=== PATIENT | female | born 1950 | race Caucasian/White ===

== ENCOUNTER 2016-06-07 11:15 | Outpatient (RCR) | payer BC, MEDICARE, MEDICAID ==
[~2016-06-07 11:15] MED LIST: ADVAIR 250/28 DISKU1 IH; ADVAIR 500/28 DISKUS IH; AUGMENTIN 875 M1 TAB PO; BLOOD PRESSURE MED; BREO IH; CELEBREX 200MG200 MG PO; CELEXA 20MG20 MG/TAB PO; CLINDAMYCIN HC150 MG PO; COMPAZINE 110 MG/TAB PO; CYMBALTA 30MG30 MG PO; DITROPAN 5MG TAB5 MG PO; DULERA1 ARO IH; EFFEXOR XR75 MG/CAP PO; FERRO-TIME325 MG PO; FOLIC ACID0.4 MG PO; FOSAMAX 70MG TA70 MG PO; INDOCIN 25MG CA25 MG PO; IRON90 MG PO; ISOMETH/DICHLOR1 CAP PO; ISOPTIN SR120 MG PO; KETOROLAC TROME10 MG PO; LAMICTAL XR200 MG PO; MAG-OX 400400 MG/TAB PO; MAGIC MOUTH PO; MULTIPLE VITAMI1 CAP PO; NEXIUM40 MG PO; NORCO 325 MG-51 TAB PO; NUCYNTA50 MG PO; OMEPRAZOLE20 MG PO; PERCOCET 325 MG1 TA2 PO; PERI-COLACE 501 TAB PO; PREDNISONE10 MG PO; PRILOSEC 20MG20 MG PO; PRO-AIR IH; PROAIR HFA0.09 MG/AC IH; PROTONIX 40MG T40 MG PO; REQUIP0.25 MG PO; RT ALBUTER2.5 MG/0.5 IH; SINGULAIR10 MG PO; SPIRIVA RE2.5 MCG/Ac; SPIRIVA18 MCG IH; THEO-DUR 3300 MG/TAB PO; THEODUR 300MG PO; THEOPHYLLINE E100 M1 PO; THEOPHYLLINE300 MG PO; TOPAMAX 100MG100 M1 PO; TRIAMTERENE/HCT1 TAB PO; TYLENOL 325MG325 MG PO; VERAPAMIL120 MG/TA1 PO; VICODIN PO; ZOFRAN 4MG T4 MG/TAB PO; [UNRECOGNIZED DRUG - REMARK]
== END 2016-06-11 | disposition home or self-care (01) ==
LOC: MKS.ESL.PT
DX: S72.044D Nondisplaced fracture of base of neck of right femur, subsequent encounter for closed fracture with routine healing (principal); X58.XXXD Exposure to other specified factors, subsequent encounter
CPT/HCPCS: G8978-GP; G8979-GP

== ENCOUNTER → 2016-06-11 | Outpatient (REF) | LOC: ZLAB.WCH 10:25 | DX: Z01.89 Encounter for other specified special examinations (principal) ==

== ENCOUNTER → 2016-06-20 | Outpatient (REF) ==
[2016-06-20 14:12] LABS: THYROID STIMULATING HORMONE 0.913 uIU/mL (0.465-4.680)
== END ==
LOC: ZLAB.WCH 10:23
PROVIDERS: Medical Genetics Clinical Genetics (M.D.)
DX: Z01.89 Encounter for other specified special examinations (principal)

== ENCOUNTER 2016-06-28 11:15 | Outpatient (RCR) | payer BC, MEDICARE, MEDICAID | END 2016-06-29 08:23 | disposition home or self-care (01) | LOC: MKS.ESL.PT 11:15 | DX: S00-T88 Injury, poisoning and certain other consequences of external causes (principal); X58.XXXD Exposure to other specified factors, subsequent encounter | CPT/HCPCS: G8979-GP; G8980-GP ==

== ENCOUNTER → 2016-07-12 | Outpatient (REF) ==
[2016-07-16 09:20] LABS: C-REACTIVE PROTEIN 4.3 mg/dL (0.0-0.9)
== END ==
LOC: ZLAB.WCH 10:53
PROVIDERS: Medical Genetics Clinical Genetics (M.D.)
DX: Z01.89 Encounter for other specified special examinations (principal)

== ENCOUNTER → 2017-01-25 | Outpatient (REF) ==
[~2017-01-25] MED LIST changes: +FLEXERIL 1010 MG/TAB PO
[2017-01-25 18:53] LABS: THYROID STIMULATING HORMONE 0.724 uIU/mL (0.465-4.680)
== END ==
LOC: ZLAB.WCH 18:03
PROVIDERS: Family Medicine
DX: Z01.89 Encounter for other specified special examinations (principal)

== ENCOUNTER 2017-01-26 14:40 | Emergency (ER) | payer BC, MEDICARE, MEDICAID ==
[~2017-01-26] VITALS: Ht 157.5 cm; Wt 62.3 kg
[~2017-01-26 14:40] MED LIST changes: -FLEXERIL 1010 MG/TAB PO
[2017-01-26 14:45] VITALS: BP 135/62; PULSE 65; TEMP 98.5
[2017-01-26] MEDS ORDERED: PERCOCET 325 MG1 TA2 PO (17:22)
[2017-01-26] MEDS ORDERED: FLEXERIL 1010 MG/TAB PO (17:22)
== END 2017-01-26 17:51 | disposition home or self-care (01) ==
LOC: COL.ER 14:40
DX: M54.5 Low back pain (principal); N39.3 Stress incontinence (female) (male); J45.909 Unspecified asthma, uncomplicated; K21.9 Gastro-esophageal reflux disease without esophagitis; G43.909 Migraine, unspecified, not intractable, without status migrainosus; D50.9 Iron deficiency anemia, unspecified
CPT/HCPCS: J1885; J2360

== ENCOUNTER 2018-03-24 13:25 | Emergency (ER) | payer BC, MEDICARE ==
[~2018-03-24] VITALS: Ht 160 cm; Wt 65.9 kg
[~2018-03-24 13:25] MED LIST changes: +FLEXERIL 1010 MG/TAB PO
[2018-03-24 13:29] VITALS: TEMP 99.3
[2018-03-24] MEDS ORDERED: VENTOLIN0.09 MG IH (14:38)
[2018-03-24] MEDS ORDERED: ACIDOPHILIS (14:39)
[2018-03-24] MEDS ORDERED: TOVIAZ4 MG PO (14:39)
[2018-03-24] MEDS ORDERED: CELEXA 20MG20 MG/TAB PO (14:39)
[2018-03-24] MEDS ORDERED: PERCOCET 325 MG1 TA2 PO (15:11)
[2018-03-24] MEDS ORDERED: WALKER MC (15:15)
[2018-03-24 16:05] VITALS: BP 136/66; PULSE 80
== END 2018-03-24 16:08 | disposition home or self-care (01) ==
LOC: COL.ER 13:25
DX: S32.501A Unspecified fracture of right pubis, initial encounter for closed fracture (principal); J44.9 Chronic obstructive pulmonary disease, unspecified; Z87.891 Personal history of nicotine dependence; Z98.890 Other specified postprocedural states; W10.8XXA Fall (on) (from) other stairs and steps, initial encounter

== ENCOUNTER 2018-04-03 12:45 | Outpatient (RCR) | payer BC, MEDICARE ==
[~2018-04-03 12:45] MED LIST changes: +ACIDOPHILIS; +TOVIAZ4 MG PO; +VENTOLIN0.09 MG IH; +WALKER MC
== END 2018-04-11 09:03 | disposition home or self-care (01) ==
LOC: WSPT 12:45
DX: M47.26 Other spondylosis with radiculopathy, lumbar region (principal); M47.818 Spondylosis without myelopathy or radiculopathy, sacral and sacrococcygeal region; M53.3 Sacrococcygeal disorders, not elsewhere classified; G57.00 Lesion of sciatic nerve, unspecified lower limb; G89.29 Other chronic pain

== ENCOUNTER 2018-05-12 12:33 | Emergency (ER) | payer BC, MEDICARE ==
[~2018-05-12] VITALS: Ht 160 cm; Wt 65.9 kg
[2018-05-12 12:38] VITALS: TEMP 97.5
[2018-05-12 13:51] LABS: BASO % 0.4 % (0.0-2.0); EOS # 0.1 (0.0-0.7); EOS % 1.6 % (0-4.0); GRAN # 2.8 (1.4-6.5); GRAN % 53.6 % (42.2-75.2); HEMATOCRIT 39.1 % (37.0-47.0); HEMOGLOBIN 12.7 g/dl (12.5-16.0); LYMPH # 1.8 (1.2-3.4); LYMPH % 35.3 % (20.0-51.0); MEAN CELL VOLUME 89 fl (80.0-100.0); MEAN CORPUSCULAR HEMOGLOBIN 29 pg (27.0-31.0); MEAN CORPUSCULAR HGB CONC 33 g/dl (33.0-37.0); MEAN PLATELET VOLUME 9.8 fl (7.4-10.4); MONO # 0.5 (0.1-0.6); MONO % 8.9 % (1.7-9.3); PLATELET COUNT 272 K/mm3 (130-400); RED BLOOD COUNT 4.39 M/mm3 (4.10-5.30)
[2018-05-12 14:05] LABS: ALANINE AMINOTRANSFERASE 17 U/L (9-52); ALBUMIN 3.7 gm/dL (3.5-5.0); ALKALINE PHOSPHATASE 98 U/L (50-136); ANION GAP 6 mmol/L (7-16); AST,SGOT 25 U/L (15-37); BILIRUBIN,TOTAL 0.2 mg/dL (0.0-1.0); BLOOD UREA NITROGEN 12 mg/dL (7-17); CALCIUM 8.7 mg/dL (8.4-10.2); CARBON DIOXIDE 29 mmol/L (22-30); CHLORIDE 106 mmol/L (98-107); CREATININE, serum 0.75 mg/dL (0.52-1.25); GLUCOSE 100 mg/dL (74-106); POTASSIUM 3.9 mmol/L (3.4-5.0); SODIUM 140 mmol/L (137-145); TOTAL PROTEIN 6.7 gm/dL (6.4-8.2)
[2018-05-12 14:17] LABS: TROPONIN-I < 0.012 ng/mL (0.000-0.034)
[2018-05-12 14:43] VITALS: BP 169/82; PULSE 72
== END 2018-05-12 15:27 | disposition home or self-care (01) ==
LOC: COL.ER 12:33
PROVIDERS: Nurse Practitioner
DX: J45.901 Unspecified asthma with (acute) exacerbation (principal); I10 Essential (primary) hypertension; Z87.891 Personal history of nicotine dependence
CPT/HCPCS: J8540

== ENCOUNTER → 2018-06-03 | Outpatient (CLI) | payer BC, MEDICARE | LOC: MC.RAD 10:38 | DX: Z12.31 Encounter for screening mammogram for malignant neoplasm of breast (principal) ==

== ENCOUNTER 2018-07-09 01:51 | Inpatient (IN) | payer BC, MEDICARE ==
[~2018-07-09] VITALS: Ht 160 cm; Wt 70.4 kg
[2018-07-09] VITALS (440 sets, daily range): BP systolic 130–172; BP diastolic 40–88; PULSE 70–81; TEMP 97.9–98.7; O2SAT 85–100
--- NOTE | 2018-07-09 03:00 | NUR ---
Pt admitted to ICU bed 5 from ED. Pt arrived via strectcher with EMS. Vitals stable upon arrival. Denies pain or any other discomfort. Will continue to monitor. Pt very tearful with labile mood.
--- NOTE | 2018-07-09 03:21 | NUR ---
Pt belonging placed in locked cabinet.
[2018-07-09] MEDS ORDERED: EFFEXOR 3737.5 MG/TA PO (04:35)
[2018-07-09] MEDS ORDERED: FLEXERIL 1010 MG/TAB PO (04:36)
[2018-07-09] MEDS ORDERED: ANTI-DIARRHEAL2 MG (04:37)
[2018-07-09] MEDS ORDERED: ZOFRAN 4MG T4 MG/TAB (04:37)
[2018-07-09] MEDS ORDERED: 00186-0370-20 IH (04:39)
--- NOTE | 2018-07-09 04:53 | NUR ---
Admission assessment complete at this time. Plan of care reviewed at bedside with patient at bedside. Additional time taken to address any other needs or concerns. Vitals stable. Denies pain. Will continue to monitor.
[2018-07-09 06:28] LABS: BASO # 0.1 (0.0-0.2); BASO % 0.7 % (0.0-2.0); EOS % 0.3 % (0-4.0); GRAN # 4.1 (1.4-6.5); GRAN % 59.8 % (42.2-75.2); HEMOGLOBIN 10.3 g/dl (12.5-16.0); LYMPH % 28.2 % (20.0-51.0); MEAN CELL VOLUME 86 fl (80.0-100.0); MEAN CORPUSCULAR HEMOGLOBIN 28 pg (27.0-31.0); MEAN CORPUSCULAR HGB CONC 32 g/dl (33.0-37.0); MEAN PLATELET VOLUME 10.6 fl (7.4-10.4); MONO # 0.7 (0.1-0.6); MONO % 10.7 % (1.7-9.3); PLATELET COUNT 249 K/mm3 (130-400); RED BLOOD COUNT 3.72 M/mm3 (4.10-5.30); REDCELL DISTRIBUTION WIDTH-CV 13.6 % (11.5-14.5)
[2018-07-09 06:36] LABS: ALBUMIN 3.1 gm/dL (3.5-5.0); BILIRUBIN,TOTAL 0.6 mg/dL (0.0-1.0); CALCIUM 8.3 mg/dL (8.4-10.2); CREATININE, serum 0.59 mg/dL (0.52-1.25); POTASSIUM 3.9 mmol/L (3.4-5.0); TOTAL PROTEIN 5.7 gm/dL (6.4-8.2)
--- NOTE | 2018-07-09 07:30 | NUR ---
Report received from Allen RN and care resumed. Pt resting quietly at this time. Does respond when asked questions but is curled up under blankets at this time and gives short one or two word responses. Will continue to follow.
--- NOTE | 2018-07-09 07:32 | NUR ---
Bedside report given to Evelia Rivera.
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
--- NOTE | 2018-07-09 09:15 | NUR ---
CEE Jean from OB here at this time for 1:1 observation. Will continue to follow.
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
--- NOTE | 2018-07-09 10:36 | NUR ---
Dr Pyle in to see pt at this time. Asked for DVT clarification due to pt not able to wear scd's per psych policy. He stated pt is not a blood thinner candidate due to large hematoma and will update the progress noted accordingly.
--- NOTE | 2018-07-09 11:24 | NUR ---
Pt resting at this time. Does continue to ask if she can talk to her and gets teary eyed with response of not at this time. Waiting on neuro, psych, and surgical consults at this time for updated plan of care. Will continue to update pt as able.
--- NOTE | 2018-07-09 12:18 | NUR ---
Dr Oliver in to see pt at this time. Pt currently getting echo.
--- NOTE | 2018-07-09 12:25 | NUR ---
Pt to MRI at this time.
--- NOTE | 2018-07-09 12:55 | NUR ---
Pt returned from MRI and placed back on monitors. Miranda remains at beside as sitter. Will continue to follow.
--- NOTE | 2018-07-09 16:57 | NUR ---
Dr Chavira in to see pt and had cleared pt of suicide watch at this time.
--- NOTE | 2018-07-09 17:13 | NUR ---
Called Dr Pyle to update him on plan of care per psych. He stated he will transfer pt to floor.
--- NOTE | 2018-07-09 18:28 | NUR ---
Report called to Yuly MIKE. Pt to transfer to medical floor room 355.
--- NOTE | 2018-07-09 18:45 | NUR ---
Pt taken by wheelchair with chart and belongings to room 355. Update given to Yuly MIKE. Pt complaining of pain after moving. No medications ordered. LABORATORY EQUIPMENT INSTALLER called and stated will address pain meds.
--- NOTE | 2018-07-09 19:43 | NUR ---
Resting in bed. Rating pain in right hip 10/10 sharp stabbing. Provided PRN percocet 1 tablet. Assessment complete. Lungs clear. Bowels active x4. Heart sounds normal. No edema noted. Large hematoma to right hip present. INT in left hand bleeding and unable to flush without increased pain to patient. Removed from left hand. Started INT to right forearm. Denies any other needs at this time. Call light in reach. Will monitor.
[2018-07-10] VITALS: BP 138/48; PULSE 67; TEMP 98
--- NOTE | 2018-07-10 00:08 | NUR ---
Resting in bed. Reporting pain 6/10 in right hip. Percocet not due. Provided pillows for comfort. Denies needs at this time.
--- NOTE | 2018-07-10 04:40 | NUR ---
Up to restroom and returned to bed. Denies needs at this time. Call light in reach.
[2018-07-10 05:17] VITALS: BP 137/42; PULSE 62; TEMP 98
--- NOTE | 2018-07-10 06:24 | NUR ---
Unevenful night. Required pain control for right hip/flank pain. Asleep this AM. Call light in reach.
[2018-07-10 06:26] LABS: BASO % 0.7 % (0.0-2.0); EOS # 0.1 (0.0-0.7); EOS % 0.8 % (0-4.0); GRAN # 3.1 (1.4-6.5); GRAN % 51.6 % (42.2-75.2); LYMPH # 2.2 (1.2-3.4); LYMPH % 36.3 % (20.0-51.0); MEAN CELL VOLUME 88 fl (80.0-100.0); MEAN CORPUSCULAR HGB CONC 32 g/dl (33.0-37.0); MEAN PLATELET VOLUME 10.5 fl (7.4-10.4); MONO # 0.6 (0.1-0.6); MONO % 10.3 % (1.7-9.3); PLATELET COUNT 223 K/mm3 (130-400); RED BLOOD COUNT 3.36 M/mm3 (4.10-5.30); REDCELL DISTRIBUTION WIDTH-CV 13.9 % (11.5-14.5)
[2018-07-10 06:31] LABS: HEMATOCRIT 29.6 % (37.0-47.0); HEMOGLOBIN 9.5 g/dl (12.5-16.0); MEAN CORPUSCULAR HEMOGLOBIN 28 pg (27.0-31.0)
[2018-07-10 06:41] LABS: CALCIUM 8.6 mg/dL (8.4-10.2); CREATININE, serum 0.6 mg/dL (0.52-1.25); MAGNESIUM 2.3 mg/dL (1.6-2.3)
--- NOTE | 2018-07-10 07:19 | NUR ---
Report given to CEE Hurtado.
[2018-07-10 08:07] VITALS: BP 152/62; PULSE 66; TEMP 98.3
--- NOTE | 2018-07-10 10:00 | NUR ---
Assessment completed, alert/oriented, speech clear, steady gait, grounding engineer equal, no neuro deficits noted, she reprots severe pain to right flank/ large hematoma present, Percocet 2 tabs given per her request, following H&H and blood counts are stable , blood pressures are WNL, other Vital signs stable, heart RRR/distal pulses are palpable, lungs CTA/ no resp.difficulty noted, she is up independently in the room, has been by and made recommendations to cut back on her Ambien usage and that if she does well with PT today she could be discahrge from a Neurology standpoint, patient has taken morning meds and dneies other needs at this time, will continue to monitor
[2018-07-10] MEDS ORDERED: EFFEXOR XR75 MG/CAP PO (11:12)
--- NOTE | 2018-07-10 13:34 | NUR ---
discharge orders discussed with patient, instructed to stop taking Ambien and dose adjustment made to her Effexor, instructed to follow up with PCP and have EEG done as we have scheduled for her, instructed to make a follow up with 1 week after her EEG is completed/ Neuro office is closed today and she will need to schedule her own appointment, IV and tele removed, she is leaving with her , FURNACE OPERATOR escorted her out the door
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
== END 2018-07-10 13:36 | disposition home or self-care (01) | DRG 918 ==
LOC: IMCU 01:51 → ICU 02:57 → MEDICAL 02:57
PROVIDERS: Nurse Practitioner; ADMIT Internal Medicine
DX: T42.6X1A Poisoning by other antiepileptic and sedative-hypnotic drugs, accidental (unintentional), initial encounter (principal); G93.40 Encephalopathy, unspecified; D62 Acute posthemorrhagic anemia; T48.1X1A Poisoning by skeletal muscle relaxants [neuromuscular blocking agents], accidental (unintentional), initial encounter; T39.1X1A Poisoning by 4-Aminophenol derivatives, accidental (unintentional), initial encounter; R41.82 Altered mental status, unspecified; F33.41 Major depressive disorder, recurrent, in partial remission; F41.1 Generalized anxiety disorder; S30.1XXA Contusion of abdominal wall, initial encounter; W18.30XA Fall on same level, unspecified, initial encounter; D50.0 Iron deficiency anemia secondary to blood loss (chronic); M79.7 Fibromyalgia; Z87.891 Personal history of nicotine dependence
CPT/HCPCS: 99223-AI; 99239

== ENCOUNTER 2018-11-05 16:58 | Emergency (ER) | payer BC, MEDICARE ==
[~2018-11-05] VITALS: Ht 157.5 cm; Wt 65.9 kg
[~2018-11-05 16:58] MED LIST changes: +00186-0370-20 IH; +ANTI-DIARRHEAL2 MG; +EFFEXOR 3737.5 MG/TA PO; +ZOFRAN 4MG T4 MG/TAB
[2018-11-05 17:11] VITALS: BP 193/88; TEMP 97.5
[2018-11-05 18:17] LABS: BASO % 0.4 % (0.0-2.0); EOS # 0.1 (0.0-0.7); EOS % 1.1 % (0-4.0); GRAN # 6.4 (1.4-6.5); GRAN % 66.4 % (42.2-75.2); HEMATOCRIT 41.4 % (37.0-47.0); HEMOGLOBIN 13.7 g/dl (12.5-16.0); LYMPH # 2.3 (1.2-3.4); LYMPH % 23.7 % (20.0-51.0); MEAN CELL VOLUME 91 fl (80.0-100.0); MEAN CORPUSCULAR HEMOGLOBIN 30 pg (27.0-31.0); MEAN CORPUSCULAR HGB CONC 33 g/dl (33.0-37.0); MEAN PLATELET VOLUME 10.8 fl (7.4-10.4); MONO # 0.8 (0.1-0.6); MONO % 8.2 % (1.7-9.3); PLATELET COUNT 288 K/mm3 (130-400); RED BLOOD COUNT 4.54 M/mm3 (4.10-5.30); REDCELL DISTRIBUTION WIDTH-CV 13.5 % (11.5-14.5)
[2018-11-05 18:25] LABS: ALANINE AMINOTRANSFERASE 12 U/L (9-52); ALBUMIN 3.9 gm/dL (3.5-5.0); ALKALINE PHOSPHATASE 108 U/L (50-136); ANION GAP 7 mmol/L (7-16); AST,SGOT 17 U/L (15-37); BILIRUBIN,TOTAL 0.2 mg/dL (0.0-1.0); BLOOD UREA NITROGEN 12 mg/dL (7-17); CALCIUM 9.1 mg/dL (8.4-10.2); CARBON DIOXIDE 26 mmol/L (22-30); CHLORIDE 106 mmol/L (98-107); CREATININE, serum 0.61 (0.52-1.25); GLUCOSE 110 mg/dL (74-106); LIPASE 43 U/L (23-300); SODIUM 139 mmol/L (137-145)
[2018-11-05 18:27] LABS: C-REACTIVE PROTEIN 0.5 mg/dL (0.0-0.9)
[2018-11-05 18:42] LABS: TROPONIN-I < 0.012 ng/mL (0.000-0.035)
[2018-11-05 18:50] LABS: COLLECTION METHOD CLEAN CATCH
[2018-11-05 19:18] LABS: MUCOUS Present /lpf; PH 5 (5-8); SQUAMOUS EPITHELIAL 0-2 /hpf; URINE APPEARANCE Clear; URINE BACTERIA None Seen /hpf; URINE BILIRUBIN Negative (NEGATIVE); URINE BLOOD Negative (NEGATIVE); URINE COLOR Yellow; URINE GLUCOSE Negative (NEGATIVE); URINE KETONE Negative (NEGATIVE); URINE LEUKOCYTE ESTERASE Negative (NEGATIVE); URINE NITRATE Negative (NEGATIVE); URINE PROTEIN(semi-quant) Negative (NEGATIVE); URINE RBC 0-2 /hpf; URINE UROBILINOGEN Negative (NEGATIVE)
[2018-11-05 20:40] VITALS: PULSE 74
== END 2018-11-05 20:40 | disposition home or self-care (01) ==
LOC: COL.ER 16:58
PROVIDERS: Emergency Medicine
DX: R10.11 Right upper quadrant pain (principal); J44.9 Chronic obstructive pulmonary disease, unspecified
CPT/HCPCS: J1170; J1885; J2405; J7030

== ENCOUNTER 2018-11-19 10:00 | Outpatient (RCR) | payer BC, MEDICARE ==
[2018-11-25] MEDS ORDERED: PHENERGAN 25 TA25 MG PO (19:27)
== END 2019-01-06 | disposition still patient (30) ==
LOC: WSOT
DX: S52.572D Other intraarticular fracture of lower end of left radius, subsequent encounter for closed fracture with routine healing (principal)

== ENCOUNTER → 2018-11-24 | Outpatient (CLI) | payer BC, MEDICARE ==
[~2018-11-24] MED LIST changes: +PHENERGAN 25 TA25 MG PO
== END ==
LOC: COL.RAD 06:46
DX: R10.9 Unspecified abdominal pain (principal)
CPT/HCPCS: A9537

== ENCOUNTER 2018-11-25 16:45 | Emergency (ER) | payer BC, MEDICARE ==
[~2018-11-25] VITALS: Ht 157.5 cm; Wt 63.6 kg
[~2018-11-25 16:45] MED LIST changes: -PHENERGAN 25 TA25 MG PO
[2018-11-25 16:50] VITALS: BP 172/90; TEMP 97.8
[2018-11-25 17:36] LABS: BASO % 0.4 % (0.0-2.0); EOS # 0.1 (0.0-0.7); EOS % 1.3 % (0-4.0); GRAN # 4.4 (1.4-6.5); HEMATOCRIT 42.3 % (37.0-47.0); HEMOGLOBIN 13.7 g/dl (12.5-16.0); LYMPH # 2.7 (1.2-3.4); LYMPH % 34.2 % (20.0-51.0); MEAN CELL VOLUME 93 fl (80.0-100.0); MEAN CORPUSCULAR HEMOGLOBIN 30 pg (27.0-31.0); MEAN CORPUSCULAR HGB CONC 32 g/dl (33.0-37.0); MEAN PLATELET VOLUME 10.5 fl (7.4-10.4); MONO # 0.6 (0.1-0.6); MONO % 7.7 % (1.7-9.3); PLATELET COUNT 310 K/mm3 (130-400); RED BLOOD COUNT 4.56 M/mm3 (4.10-5.30); REDCELL DISTRIBUTION WIDTH-CV 14.2 % (11.5-14.5)
[2018-11-25 17:44] LABS: ALANINE AMINOTRANSFERASE 6 U/L (9-52); ALKALINE PHOSPHATASE 104 U/L (50-136); ANION GAP 8 mmol/L (7-16); AST,SGOT 26 U/L (15-37); BILIRUBIN,TOTAL 0.3 mg/dL (0.0-1.0); BLOOD UREA NITROGEN 9 mg/dL (7-17); CALCIUM 9.3 mg/dL (8.4-10.2); CARBON DIOXIDE 30 mmol/L (22-30); CHLORIDE 103 mmol/L (98-107); CREATININE, serum 0.65 (0.52-1.25); GLUCOSE 128 mg/dL (74-106); LIPASE 34 U/L (23-300); POTASSIUM 3.7 mmol/L (3.4-5.0); SODIUM 141 mmol/L (137-145); TOTAL PROTEIN 7.1 gm/dL (6.4-8.2)
[2018-11-25 17:50] LABS: C-REACTIVE PROTEIN < 0.5 mg/dL (0.0-0.9)
[2018-11-25 18:17] LABS: COLLECTION METHOD CLEAN CATCH
[2018-11-25 18:24] LABS: MUCOUS Present /lpf; PH 7 (5-8); SQUAMOUS EPITHELIAL 0-2 /hpf; URINE APPEARANCE Clear; URINE BACTERIA None Seen /hpf; URINE BILIRUBIN Negative (NEGATIVE); URINE BLOOD Negative (NEGATIVE); URINE COLOR Straw; URINE GLUCOSE Negative (NEGATIVE); URINE KETONE Negative (NEGATIVE); URINE LEUKOCYTE ESTERASE Negative (NEGATIVE); URINE NITRATE Negative (NEGATIVE); URINE PROTEIN(semi-quant) Negative (NEGATIVE); URINE RBC 0-2 /hpf; URINE UROBILINOGEN Negative (NEGATIVE)
[2018-11-25] MEDS ORDERED: PHENERGAN 25 TA25 MG PO (19:27)
[2018-11-25 19:36] VITALS: PULSE 67
== END 2018-11-25 19:39 | disposition home or self-care (01) ==
LOC: COL.ER 16:45
PROVIDERS: Emergency Medicine
DX: R10.13 Epigastric pain (principal); K21.9 Gastro-esophageal reflux disease without esophagitis
CPT/HCPCS: C9113; J0780; J1170; J1200; J2930; J7030; Q9967

== ENCOUNTER 2019-02-15 15:46 | Emergency (ER) | payer BC, MEDICARE ==
[~2019-02-15] VITALS: Ht 157.5 cm; Wt 65.9 kg
[~2019-02-15 15:46] MED LIST changes: +PHENERGAN 25 TA25 MG PO
[2019-02-15 16:23] VITALS: BP 126/82; PULSE 89; TEMP 98
== END 2019-02-15 17:20 | disposition left against medical advice (07) ==
LOC: COL.ER 15:46
DX: S40.212A Abrasion of left shoulder, initial encounter (principal); W22.8XXA Striking against or struck by other objects, initial encounter

== ENCOUNTER 2019-06-01 19:16 | Emergency (ER) | payer BC, MEDICARE ==
[~2019-06-01] VITALS: Ht 157.5 cm; Wt 63.6 kg
[~2019-06-01 19:16] MED LIST changes: +ATIVAN 0.50.5 MG/TAB PO; +EFFEXOR-XR150 MG PO; +NORVASC 5MG5 MG/TAB PO
[2019-06-01 19:37] VITALS: TEMP 97.7
[2019-06-01 21:33] LABS: BASO # 0.1 (0.0-0.2); BASO % 0.3 % (0.0-2.0); EOS # 0.1 (0.0-0.7); EOS % 0.7 % (0-4.0); GRAN # 11.4 (1.4-6.5); GRAN % 79.4 % (42.2-75.2); HEMATOCRIT 41.8 % (37.0-47.0); HEMOGLOBIN 13.6 g/dl (12.5-16.0); LYMPH # 1.7 (1.2-3.4); LYMPH % 11.8 % (20.0-51.0); MEAN CELL VOLUME 90 fl (80.0-100.0); MEAN CORPUSCULAR HEMOGLOBIN 29 pg (27.0-31.0); MEAN CORPUSCULAR HGB CONC 33 g/dl (33.0-37.0); MEAN PLATELET VOLUME 9.9 fl (7.4-10.4); MONO % 7.2 % (1.7-9.3); PLATELET COUNT 390 K/mm3 (130-400); RED BLOOD COUNT 4.64 M/mm3 (4.10-5.30); REDCELL DISTRIBUTION WIDTH-CV 13.4 % (11.5-14.5)
[2019-06-01 21:34] LABS: ALBUMIN 4.3 gm/dL (3.5-5.0); BILIRUBIN,TOTAL 0.5 mg/dL (0.0-1.0); C-REACTIVE PROTEIN 0.9 mg/dL (0.0-0.9); CALCIUM 9.2 mg/dL (8.4-10.2); CREATININE, serum 0.63 (0.52-1.25); POTASSIUM 3.6 mmol/L (3.4-5.0); TOTAL PROTEIN 7.4 gm/dL (6.4-8.2)
[2019-06-01 21:57] LABS: ERYTHROCYTE SEDIMENTATION RATE 13 mm/hr (0-30)
[2019-06-01 22:43] LABS: COLLECTION METHOD CLEAN CATCH
[2019-06-01 23:04] LABS: MUCOUS Present /lpf; PH 7 (5-8); SQUAMOUS EPITHELIAL 0-2 /hpf; URINE APPEARANCE Clear; URINE BACTERIA None Seen /hpf; URINE BILIRUBIN Negative (NEGATIVE); URINE BLOOD 1+ (NEGATIVE); URINE COLOR Yellow; URINE GLUCOSE Negative (NEGATIVE); URINE KETONE 1+ (NEGATIVE); URINE LEUKOCYTE ESTERASE Negative (NEGATIVE); URINE NITRATE Negative (NEGATIVE); URINE PROTEIN(semi-quant) Negative (NEGATIVE); URINE RBC 0-2 /hpf; URINE UROBILINOGEN Negative (NEGATIVE)
[2019-06-01] MEDS ORDERED: FLEXERIL 1010 MG/TAB PO (23:34)
[2019-06-02 01:45] VITALS: BP 140/80; PULSE 81
== END 2019-06-02 01:47 | disposition home or self-care (01) ==
LOC: COL.ER 19:16
PROVIDERS: Emergency Medicine
DX: M54.5 Low back pain (principal); M54.6 Pain in thoracic spine; G89.29 Other chronic pain; J44.9 Chronic obstructive pulmonary disease, unspecified; Z87.891 Personal history of nicotine dependence
CPT/HCPCS: J1200; J1885; J2270; J2920; J7030; Q9967

== ENCOUNTER 2019-06-12 15:19 | Emergency (ER) | payer BC, MEDICARE ==
[~2019-06-12] VITALS: Ht 157.5 cm; Wt 63.6 kg
[2019-06-12 16:10] VITALS: BP 179/100
[2019-06-12 19:30] VITALS: PULSE 88; TEMP 98.2
== END 2019-06-12 19:33 | disposition home or self-care (01) ==
LOC: COL.ER 15:19
DX: S22.050A Wedge compression fracture of T5-T6 vertebra, initial encounter for closed fracture (principal); J44.9 Chronic obstructive pulmonary disease, unspecified; Z87.891 Personal history of nicotine dependence; X58.XXXA Exposure to other specified factors, initial encounter
CPT/HCPCS: J2270

== ENCOUNTER → 2019-12-29 | Outpatient (CLI) | payer BC, MEDICARE | LOC: MC.RAD 09:21 | DX: Z12.31 Encounter for screening mammogram for malignant neoplasm of breast (principal) ==

== ENCOUNTER 2020-10-17 13:48 | Emergency (ER) | payer BC, MEDICARE ==
[~2020-10-17] VITALS: Ht 157.5 cm; Wt 59.5 kg
[2020-10-17 13:56] VITALS: TEMP 98.2
[2020-10-17 14:18] LABS: BASO # 0.1 (0.0-0.2); BASO % 0.8 % (0.0-2.0); EOS # 0.2 (0.0-0.7); EOS % 1.5 % (0-4.0); GRAN # 7.4 (1.4-6.5); GRAN % 70.7 % (42.2-75.2); HEMATOCRIT 38.1 % (37.0-47.0); HEMOGLOBIN 12.6 g/dl (12.5-16.0); LYMPH % 19.1 % (20.0-51.0); MEAN CELL VOLUME 91 fl (80.0-100.0); MEAN CORPUSCULAR HEMOGLOBIN 30 pg (27.0-31.0); MEAN CORPUSCULAR HGB CONC 33 g/dl (33.0-37.0); MEAN PLATELET VOLUME 10.7 fl (7.4-10.4); MONO # 0.8 (0.1-0.6); MONO % 7.6 % (1.7-9.3); PLATELET COUNT 356 K/mm3 (130-400); RED BLOOD COUNT 4.21 M/mm3 (4.10-5.30); REDCELL DISTRIBUTION WIDTH-CV 12.9 % (11.5-14.5)
[2020-10-17 14:26] LABS: PARTIAL THROMBOPLASTIN TIME 31.5 SECONDS (26.0-37.0)
[2020-10-17 14:30] LABS: ALANINE AMINOTRANSFERASE 12 U/L (4-34); ALBUMIN 4.1 gm/dL (3.5-5.0); ALKALINE PHOSPHATASE 88 U/L (50-136); ANION GAP 6 mmol/L (7-16); AST,SGOT 24 U/L (15-37); BILIRUBIN,TOTAL 0.3 mg/dL (0.0-1.0); BLOOD UREA NITROGEN 19 mg/dL (7-17); CALCIUM 9.5 mg/dL (8.4-10.2); CARBON DIOXIDE 27 mmol/L (22-30); CHLORIDE 102 mmol/L (98-107); CREATININE, serum 0.99 (0.52-1.25); GLUCOSE 107 mg/dL (74-106); POTASSIUM 3.3 mmol/L (3.4-5.0); SODIUM 134 mmol/L (137-145); TOTAL PROTEIN 7.2 gm/dL (6.4-8.2)
[2020-10-17 14:43] LABS: TROPONIN-I < 0.012 ng/mL (0.000-0.035)
[2020-10-17 15:46] VITALS: BP 176/77; PULSE 83
== END 2020-10-17 15:44 | disposition home or self-care (01) ==
LOC: COL.ER 13:48
PROVIDERS: Family Medicine
DX: R07.89 Other chest pain (principal); I10 Essential (primary) hypertension; J44.9 Chronic obstructive pulmonary disease, unspecified; Z87.891 Personal history of nicotine dependence; Z79.51 Long term (current) use of inhaled steroids; Z79.899 Other long term (current) drug therapy

== ENCOUNTER 2021-07-12 12:39 | Emergency (ER) | payer BC, MEDICARE ==
[~2021-07-12] VITALS: Ht 157.5 cm; Wt 53.6 kg
[2021-07-12 13:02] VITALS: TEMP 98.7
[2021-07-12] MEDS ORDERED: PERCOCET 325 MG1 TA2 PO (15:15)
[2021-07-12 15:35] VITALS: BP 119/75; PULSE 81
== END 2021-07-12 15:35 | disposition home or self-care (01) ==
LOC: COL.ER 12:39
DX: S22.20XA Unspecified fracture of sternum, initial encounter for closed fracture (principal); Z88.6 Allergy status to analgesic agent; W10.8XXA Fall (on) (from) other stairs and steps, initial encounter
CPT/HCPCS: J2270

== ENCOUNTER 2021-08-02 15:56 | Emergency (ER) | payer BC, MEDICARE ==
[~2021-08-02] VITALS: Ht 157.5 cm; Wt 54.5 kg
[2021-08-02 16:06] VITALS: TEMP 98.1
[2021-08-02 17:12] LABS: BASO # 0.1 K/mm3 (0.0-0.2); BASO % 0.8 % (0.0-2.0); EOS # 0.1 K/mm3 (0.0-0.7); EOS % 0.6 % (0.0-4.0); GRAN # 8.4 K/mm3 (1.4-6.5); GRAN % 74.4 % (42.2-75.2); HEMATOCRIT 41.9 % (37.0-47.0); HEMOGLOBIN 14.1 g/dl (12.5-16.0); LYMPH # 1.8 K/mm3 (1.2-3.4); LYMPH % 15.7 % (20.0-51.0); MEAN CELL VOLUME 87 fl (80.0-100.0); MEAN CORPUSCULAR HEMOGLOBIN 29 pg (27-31); MEAN CORPUSCULAR HGB CONC 34 g/dl (33.0-37.0); MEAN PLATELET VOLUME 10.1 fl (7.4-10.4); MONO # 0.9 K/mm3 (0.1-0.6); PLATELET COUNT 386 K/mm3 (130-400); RED BLOOD COUNT 4.81 M/mm3 (4.10-5.30); REDCELL DISTRIBUTION WIDTH-CV 14.6 % (11.5-14.5)
[2021-08-02 18:21] LABS: TRICYCLIC ANTIDEPRESS URINE NEGATIVE
[2021-08-02] MEDS ORDERED: PERCOCET 325 MG1 TA2 PO (19:27)
[2021-08-02 19:54] VITALS: BP 138/87; PULSE 86
== END 2021-08-02 19:54 | disposition home or self-care (01) ==
LOC: COL.ER 15:56
PROVIDERS: Physician Assistant
DX: S22.080A Wedge compression fracture of T11-T12 vertebra, initial encounter for closed fracture (principal); W18.2XXA Fall in (into) shower or empty bathtub, initial encounter
CPT/HCPCS: J3010

== ENCOUNTER 2022-09-28 13:11 | Day surgery (SDC) | payer OTHER, MEDICARE ==
[~2022-09-28] VITALS: Ht 152.4 cm; Wt 47.8 kg
[2022-09-28] MEDS ORDERED: COZAAR100 MG PO (13:30)
[2022-09-28] MEDS ORDERED: SPIRIVA RE2.5 MCG/Ac IH (13:30)
[2022-09-28] MEDS ORDERED: 00186-0370-20 IH (13:31)
[2022-09-28] MEDS ORDERED: THEO-DUR 3300 MG/TAB PO (13:31)
[2022-09-28] MEDS ORDERED: CARAFATE 1GM1 G PO (13:31)
[2022-09-28] MEDS ORDERED: PROTONIX 40MG T40 MG PO (13:34)
[2022-09-28] MEDS ORDERED: PREDNISONE10 MG PO (13:34)
[2022-09-28 13:47] VITALS: BP 154/82; PULSE 93; TEMP 98.4
[2022-09-28 15:15] VITALS: BP 131/65; PULSE 54; TEMP 98.4
[2022-09-28 15:30] VITALS: BP 127/67; PULSE 50
[2022-09-28 15:45] VITALS: BP 140/76; PULSE 52
--- NOTE | 2022-09-28 16:05 | NUR ---
1515 RETURNS TO ROOM 5 PER CART. AWAKE, ALERT. RESP UNLABORED. AMBULATES TO RECLINER WITH STAND BY ASSIST. DENIES NAUSEA OR DYSPHAGIA. REPORTS SLIGHT ABD GAS PAIN. VITAL SIGNS OBTAINED. CALL LIGHT AT SIDE. FRIEND IN ROOM. 1530 REPORTS COMFORT TOLERATES PO JUICE WITHOUT NAUSEA. SWALLOWS WITHOUT DIFFICULTY. 1545 DISCHARGE INSTRUCTIONS REVIEWED. PATIENT VERBALIZES UNDERSTANDING. COPY PROVIDED IN DISCHARGE FOLDER 1548 DR. LOPEZ HERE TO VISIT WITH PATIENT. 1558 DRESSES SELF
== END 2022-09-28 16:05 | disposition home or self-care (01) ==
LOC: SDCO 13:11
DX: Z12.11 Encounter for screening for malignant neoplasm of colon (principal); K22.2 Esophageal obstruction; K20.90 Esophagitis, unspecified without bleeding; K44.9 Diaphragmatic hernia without obstruction or gangrene; K57.30 Diverticulosis of large intestine without perforation or abscess without bleeding; K92.0 Hematemesis; D50.9 Iron deficiency anemia, unspecified; Z86.010 Personal history of colon polyps; Z87.891 Personal history of nicotine dependence; Z79.899 Other long term (current) drug therapy
CPT/HCPCS: 43239; 43249; G0121; C1726; J2704; J7120

== ENCOUNTER 2022-10-05 16:36 | Emergency (ER) | payer OTHER, MEDICARE ==
[~2022-10-05] VITALS: Ht 152.4 cm; Wt 48.2 kg
[~2022-10-05 16:36] MED LIST changes: +CARAFATE 1GM1 G PO; +COZAAR100 MG PO; +SPIRIVA RE2.5 MCG/Ac IH
[2022-10-05 16:38] VITALS: TEMP 98.7
[2022-10-05 17:24] LABS: BASO # 0.1 K/mm3 (0.0-0.2); BASO % 0.6 % (0.0-2.0); EOS # 0.1 K/mm3 (0.0-0.7); EOS % 1.4 % (0.0-4.0); GRAN # 4.7 K/mm3 (1.4-6.5); GRAN % 58.8 % (42.2-75.2); LYMPH # 2.1 K/mm3 (1.2-3.4); LYMPH % 26.8 % (20.0-51.0); MEAN CELL VOLUME 80 fl (80.0-100.0); MEAN CORPUSCULAR HEMOGLOBIN 25 pg (27-31); MEAN CORPUSCULAR HGB CONC 31 g/dl (33.0-37.0); MEAN PLATELET VOLUME 9.3 fl (7.4-10.4); PLATELET COUNT 564 K/mm3 (130-400); RED BLOOD COUNT 3.63 M/mm3 (4.10-5.30)
[2022-10-05 17:36] LABS: ALBUMIN 3.5 gm/dL (3.4-4.8); BILIRUBIN,TOTAL 0.1 mg/dL (0.2-1.2); CALCIUM 9.4 mg/dL (8.4-10.2); CREATININE, serum 1.71 mg/dL (0.57-1.11); TOTAL PROTEIN 6.2 gm/dL (6.2-8.1)
[2022-10-05 18:07] VITALS: BP 168/81; PULSE 82
== END 2022-10-05 18:10 | disposition home or self-care (01) ==
LOC: COL.ER 16:36
PROVIDERS: Physician Assistant
DX: D64.9 Anemia, unspecified (principal)
CPT/HCPCS: J2405; J7030

== ENCOUNTER 2023-06-25 03:59 | Emergency (ER) | payer OTHER, MEDICARE ==
[~2023-06-25] VITALS: Ht 147.3 cm; Wt 51.8 kg
[~2023-06-25 03:59] MED LIST changes: +ATARAX 25MG25 MG/TAB PO; +CYMBALTA 60MG60 MG PO; +DESYREL 50MG50 MG PO; +FARXIGA10 PO; +LIDODERM 5% PATC1 EA TP; +VOLTAREN GEL 1%1 TU TP
[2023-06-25 04:01] VITALS: TEMP 98.3
[2023-06-25] MEDS ORDERED: Albuterol/Ipratropium 3 MG-0.5 MG/3 ML Neb Soln IH SCH (04:15)
[2023-06-25 04:16] LABS: BASO # 0.1 K/mm3 (0.0-0.2); BASO % 0.6 % (0.0-2.0); GRAN # 7.4 K/mm3 (1.4-6.5); GRAN % 78.1 % (42.2-75.2); HEMATOCRIT 31.3 % (37.0-47.0); HEMOGLOBIN 10.2 g/dl (12.5-16.0); LYMPH # 1.1 K/mm3 (1.2-3.4); LYMPH % 11.5 % (20.0-51.0); MEAN CELL VOLUME 82 fl (80.0-100.0); MEAN CORPUSCULAR HEMOGLOBIN 27 pg (27-31); MEAN CORPUSCULAR HGB CONC 33 g/dl (33.0-37.0); MEAN PLATELET VOLUME 9.5 fl (7.4-10.4); MONO # 0.9 K/mm3 (0.1-0.6); MONO % 9.2 % (1.7-9.3); PLATELET COUNT 482 K/mm3 (130-400); RED BLOOD COUNT 3.84 M/mm3 (4.10-5.30); REDCELL DISTRIBUTION WIDTH-CV 18.6 % (11.5-14.5)
[2023-06-25 04:35] LABS: C-REACTIVE PROTEIN 0.79 mg/dL (0.00-0.50); MAGNESIUM 2.2 mg/dL (1.6-2.6)
[2023-06-25 04:49] LABS: TROPONIN-I < 0.010 ng/mL (0.00-0.033)
[2023-06-25] MEDS ORDERED: predniSONE 20 MG TAB PO ONE (05:30)
[2023-06-25 05:34] LABS: ALBUMIN 3.6 gm/dL (3.4-4.8); BILIRUBIN,TOTAL 0.5 mg/dL (0.2-1.2); CALCIUM 9.5 mg/dL (8.4-10.2); CREATININE, serum 1.18 mg/dL (0.57-1.11); POTASSIUM 3.5 mmol/L (3.5-4.5); TOTAL PROTEIN 6.5 gm/dL (6.2-8.1)
[2023-06-25] MEDS ORDERED: LEVAQUIN 5500 MG/TA1 PO (06:34)
[2023-06-25 06:52] VITALS: BP 144/72; PULSE 98
[2023-06-25] MEDS ORDERED: AMRIX30 MG PO (15:52)
[2023-06-25] MEDS ORDERED: NORCO 325 MG-51 TAB PO (17:45)
[2023-06-26] MEDS ORDERED: PROAIR HFA0.09 MG/AC IH (08:19)
[2023-06-26] MEDS ORDERED: FORTEO250 MCG/ML SQ (08:24)
[2023-06-29] MEDS ORDERED: PROTONIX 40MG T40 MG PO
== END 2023-06-25 06:52 | disposition home or self-care (01) ==
LOC: COL.ER 03:59
PROVIDERS: Emergency Medicine
DX: J44.1 Chronic obstructive pulmonary disease with (acute) exacerbation (principal); D64.9 Anemia, unspecified; Z87.891 Personal history of nicotine dependence
CPT/HCPCS: J7512

== ENCOUNTER 2023-06-29 19:46 | Emergency (ER) | payer OTHER, MEDICARE ==
[~2023-06-29] VITALS: Ht 147.3 cm; Wt 50.0 kg
[~2023-06-29 19:46] MED LIST changes: +AMRIX30 MG PO; +FORTEO250 MCG/ML SQ; +LEVAQUIN 5500 MG/TA1 PO
[2023-06-29 19:50] VITALS: TEMP 98.3
[2023-06-29] MEDS ORDERED: Morphine 4 MG/ML VIAL IV ONE (21:30)
[2023-06-29] MEDS ORDERED: Mag/Al Hydrox/Simeth Susp 30 ML CUP PO ONE (21:30)
[2023-06-29] MEDS ORDERED: levoFLOXacin 500 MG TAB PO ONE (21:30)
[2023-06-29 22:08] LABS: BASO # 0.1 K/mm3 (0.0-0.2); BASO % 0.8 % (0.0-2.0); EOS # 0.4 K/mm3 (0.0-0.7); EOS % 4.2 % (0.0-4.0); GRAN # 6.4 K/mm3 (1.4-6.5); GRAN % 63.4 % (42.2-75.2); HEMOGLOBIN 11.1 g/dl (12.5-16.0); LYMPH # 2.1 K/mm3 (1.2-3.4); LYMPH % 20.5 % (20.0-51.0); MEAN CELL VOLUME 86 fl (80.0-100.0); MEAN CORPUSCULAR HEMOGLOBIN 26 pg (27-31); MEAN CORPUSCULAR HGB CONC 30 g/dl (33.0-37.0); MEAN PLATELET VOLUME 9.6 fl (7.4-10.4); MONO # 1.1 K/mm3 (0.1-0.6); MONO % 10.9 % (1.7-9.3); PLATELET COUNT 572 K/mm3 (130-400); RED BLOOD COUNT 4.29 M/mm3 (4.10-5.30); REDCELL DISTRIBUTION WIDTH-CV 18.6 % (11.5-14.5)
[2023-06-29 22:24] LABS: ALBUMIN 3.4 gm/dL (3.4-4.8); BILIRUBIN,TOTAL 0.2 mg/dL (0.2-1.2); C-REACTIVE PROTEIN 0.07 mg/dL (0.00-0.50); CREATININE, serum 1.14 mg/dL (0.57-1.11); POTASSIUM 3.7 mmol/L (3.5-4.5)
[2023-06-29 22:52] LABS: COLLECTION METHOD CLEAN CATCH
[2023-06-29] MEDS ORDERED: Iohexol 300 - 100 ML VIAL IV ONE (22:56)
[2023-06-29 22:57] LABS: URINE APPEARANCE CLEAR (CLEAR/HAZY); URINE BLOOD NEGATIVE (NEGATIVE); URINE COLOR YELLOW (YELLOW); URINE GLUCOSE 3+ (NEGATIVE); URINE KETONE NEGATIVE (NEGATIVE); URINE NITRATE NEGATIVE (NEGATIVE); URINE PROTEIN(semi-quant) 1+ (NEGATIVE); URINE UROBILINOGEN 0.2 E.U/dL (0.2-1.0)
[2023-06-29] MEDS ORDERED: NS 50 ML IV ONE (22:57)
[2023-06-30 00:05] VITALS: BP 170/80; PULSE 98
== END 2023-06-30 00:05 | disposition home or self-care (01) ==
LOC: COL.ER 19:46
PROVIDERS: Nurse Practitioner
DX: R10.13 Epigastric pain (principal); R10.12 Left upper quadrant pain; K21.9 Gastro-esophageal reflux disease without esophagitis; J18.9 Pneumonia, unspecified organism; Z87.891 Personal history of nicotine dependence
CPT/HCPCS: J2270; Q9967

== ENCOUNTER 2023-07-11 13:23 | Day surgery (SDC) | payer OTHER, MEDICARE ==
[~2023-07-11] VITALS: Ht 147.3 cm; Wt 50.0 kg
[~2023-07-11 13:23] MED LIST changes: +LR 1,000 ML IV SCH; +Ondansetron 4 MG/2 ML VIAL IV PRN
[2023-07-11] MEDS ORDERED: Lidocaine PF 2% (20 MG/ML) 5 ML VIAL ONE (14:44)
[2023-07-11] MEDS ORDERED: FOLIC ACID 40400 MCG PO (15:34)
[2023-07-11] MEDS ORDERED: BENTYL 20MG20 MG/TAB PO (15:35)
[2023-07-11] MEDS ORDERED: TRELEGY ELLIPT1 EACH IH (15:37)
[2023-07-11 15:42] VITALS: BP 146/76; PULSE 76; TEMP 98.1
[2023-07-11 15:45] VITALS: BP 155/76; PULSE 75; TEMP 97.8
[2023-07-11 16:00] VITALS: BP 159/73; PULSE 72
[2023-07-11 16:15] VITALS: BP 148/66; PULSE 82
--- NOTE | 2023-07-11 17:18 | NUR ---
1545: PATIENT TO BAY 3 FROM ENDO SUITE. AMBULATED FROM CART TO RECLINER X2 ASSIST. ALERT AND ORIENTED. DENIES PAIN OR NAUSEA. VSS. BREATHING EVEN AND UNLABORED. REQUESTING MUFFIN AND SODA. WARM BLANKET PROVIDED. NO FURTHER NEEDS NOTED. RESTING IN RECLINER. CALL LIGHT IN REACH. 1600: ALERT AND ORIENTED. VSS. BREATHING EVEN AND UNLABORED. TOLERATING MUFFIN AND SODA. DENIES PAIN OR NAUSEA. NO FURTHER NEEDS NOTED. RESTING IN RECLINER. CALL LIGHT IN REACH. 1612: DR. LOPEZ IN TO SPEAK WITH PATIENT AT THIS TIME. 1615: ALERT AND ORIENTED. VSS. BREATHING EVEN AND UNLABORED. DENIES PAIN OR NAUSEA. DISCHARGE EDUCATION DONE AT THIS TIME. PATIENT STATED UNDERSTANDING OF INSTRUCTIONS. DISCHARGE PAPERWORK GIVEN TO PATIENT. IV DC'D AT THIS TIME. PATIENT DENIES ASSISTANCE WITH DRESSING. 1630: PATIENT OFF UNIT AT THIS TIME VIA WHEELCHAIR. PATIENT DISCHARGED TO HOME WITH FAMILY FRIEND, NATHAN, PER PERSONAL VEHICLE.
== END 2023-07-11 16:30 | disposition home or self-care (01) ==
LOC: SDCO 13:23
DX: Z12.11 Encounter for screening for malignant neoplasm of colon (principal); K21.9 Gastro-esophageal reflux disease without esophagitis; K44.9 Diaphragmatic hernia without obstruction or gangrene; K22.2 Esophageal obstruction; K29.30 Chronic superficial gastritis without bleeding; D12.3 Benign neoplasm of transverse colon; K57.30 Diverticulosis of large intestine without perforation or abscess without bleeding; Z87.891 Personal history of nicotine dependence
CPT/HCPCS: J2704; J7120